=== PATIENT | male | born 1975 | race Caucasian/White ===

== ENCOUNTER 2023-09-19 11:27 | Emergency (ER) | payer OTHER ==
[2023-09-19 11:48] VITALS: BP 129/92; O2SAT 99
[2023-09-19] MEDS ORDERED: OXYMETAZOLINE HCL 100 SPRAYS BOTTLE NAS STA (12:21)
[2023-09-19] MEDS ORDERED: TETANUS/DIPHTHERIA/PERTUSSIS 0.5 ML SYRINGE IM ONE (12:21)
--- NOTE | 2023-09-19 12:36 | ED Physician Documentation ---
PD HPI HEAD INJURY - Stated complaint Stated Complaint: FACE LAC - Chief complaint Chief Complaint: Heent - History obtained from History obtained from: Patient, Other (Video humanities and languages professor services used) - Additional information Additional information: Patient is a 48-year-old male with no significant past medical history presenting for evaluation of injury to his face that occurred just prior to arrival. Patient was on a scaffolding when he slipped and fell forward hitting his face. He states then he fell backwards. He denies having LOC. He reports pain to the nose as well as to the right ankle. He does have a nosebleed which is slowed down. He does not take a blood thinner. He is unsure of his last tetanus. Review of Systems Nose: reports: Epistaxis Musculoskeletal: reports: Extremity pain Neurologic: reports: Head injury. denies: Syncope PD PAST MEDICAL HISTORY - Past Medical History Past Medical History: Yes Endocrine/Autoimmune: Type 2 diabetes - Past Surgical History Past Surgical History: No - Allergies Allergies/Adverse Reactions: Allergies Allergy/AdvReac Type Severity Reaction Status Date / Time No Known Drug Allergies Allergy Verified 09/19/23 11:46 - Social History Does the pt smoke?: No Smoking Status: Never smoker PD ED PE NORMAL - General General: Alert and oriented X 3, No acute distress, Well developed/nourished - HEENT HEENT: PERRL, EOMI, Moist mucous membranes, Pharynx benign, Other (Half centimeter laceration to nasal bridge, mild tenderness to the nose, right-sided epistaxis which has stopped) - Neck Neck: Supple, no meningeal sign, No bony TTP, C-Spine cleared by NEXUS criteria - Cardiac Cardiac: RRR - Respiratory Respiratory: No respiratory distress, Clear bilaterally - Derm Derm: Warm and dry - Extremities Extremities: Other (Tenderness and swelling to right lateral malleolus) - Neuro Neuro: Alert and oriented X 3, No motor deficit, Normal speech Results - Vitals Vitals: Vital Signs - 24 hr 09/19/23 11:36 Temperature 36.5 C Heart Rate 85 Respiratory 18 Rate Blood Pressure 129/92 H O2 Saturation 99 Procedures - Epistaxis - Minor Site: Right Preparation: Clots removed, Afrin, Clamp / pressure applied, Other (TXA) Treatment: Silver Nitrate Other: Observed - no bleeding, Pt tolerated well, O2 sat WNL PD Medical Decision Making - ED course Complexity details: reviewed results, d/w patient ED course: Patient is a 48-year-old male presenting for evaluation after a fall at work. He sustained a small abrasion to the nose along with a nosebleed. He also reports swelling and tenderness to the right ankle. X-rays were obtained of the nasal bone as well as the right ankle with no signs of fracture or dislocation. Patient was given a tetanus booster.Patient had a slight nosebleed from the right nare. There is no signs of a septal hematoma. Afrin was applied and he continued to have a little bit of blood. Then tried TXA on soaked gauze with a nasal clamp but Patient had difficulties in keeping the clamp in place. Therefo re I remove the gauze and took another look and was able to cauterize a small area of bleeding with silver nitrate. Patient was then observed for a bit longer with any recurrence of bleeding. Patient was given an Aircast and crutches for his ankle sprain. He is counseled on need for close follow-up as well as concerning symptoms to return for. Departure - Departure Disposition: 01 Home, Self Care Clinical Impression: Right ankle sprain, Right-sided epistaxis, Nose abrasion, Contusion, nose Condition: Stable Instructions: ED Nosebleed, ED Contusion Nasal, ED Sprain Ankle Print Language: Chinese Comments: The x-ray of your ankle and your nose do not show fractures. We have given you an Aircast and crutches to help with your ankle sprain. Your nosebleed also seems to have stopped. You were given a tetanus booster. If your nosebleed restarts please use the nasal clamp that you were given and see if this helps it stop after 20 to 30 minutes. If it is not stopping then please seek care in the emergency department. Return to the emergency department with any concerns. Forms: PCP List, Activity restrictions Discharge Date/Time: 09/19/23 16:27
[2023-09-19] MEDS ORDERED: TRANEXAMIC ACID 1,000 MG/10 ML VIAL NAS STA (13:25)
[2023-09-19] MEDS ORDERED: ACETAMINOPHEN 325 MG TABLET PO STA (13:48)
--- NOTE | 2023-09-19 13:55 | XRAY Report ---
PROCEDURE: Ankle 3+V RT INDICATIONS: fall/pain TECHNIQUE: 3 views of the ankle were acquired. COMPARISON: None. FINDINGS: Bones: No fractures or dislocations. Ankle mortise is normally aligned. Mild degenerative changes. No suspicious bony lesions. Soft tissues: No tibiotalar joint effusion. Achilles tendon appears normal. IMPRESSION: No acute bony abnormality identified. Reviewed by: Refugio Alamo MD on 09/19/2023 1:54 PM [facility] Approved by: Refugio Alamo MD on 09/19/2023 1:54 PM [facility] Station ID: [id number]
[2023-09-19] MEDS ORDERED: SILVER NITRATE APPLICATOR TOP STA (14:31)
--- NOTE | 2023-09-19 14:59 | XRAY Report ---
PROCEDURE: Nasal Bones INDICATIONS: fall/pain TECHNIQUE: 3 views of the nasal bones acquired. COMPARISON: None FINDINGS: Bones: No fractures or dislocations. Nasal septum is midline. Normal nasociliary nerve grooves are noted. Soft tissues: No suspicious soft tissue calcifications. IMPRESSION: Unremarkable nasal bone radiographs Reviewed by: Demetrius Wade MD on 09/19/2023 1:57 PM [place] Approved by: Demetrius Wade MD on 09/19/2023 1:57 PM [place] Station ID: [id number]
== END 2023-09-19 16:27 | disposition home or self-care (01) ==
LOC: ED 11:27
DX: S00.31XA Abrasion of nose, initial encounter (principal); W17.89XA Other fall from one level to another, initial encounter; E11.9 Type 2 diabetes mellitus without complications; R04.0 Epistaxis
CPT/HCPCS: 1040M; 70160; 73610; 90715; A9270